=== PATIENT | male | born 2000 | race Caucasian/White ===

== ENCOUNTER 2023-02-15 19:03 | Emergency (ER) | payer OTHER ==
--- OUTSIDE RECORDS SUMMARY | 2023-02-15 19:06 | XMS REPORT | Continuity of Care Document ---
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, dissecans, 00:00: Ho spita right knee right knee 00 l Tear of Tear of Disease Active Methodi lateral lateral 03-04 st meniscus meniscus 00:00: Hospit a of right of right 00 l knee knee Encounter Encounter Diagnosis Active 2020-04-03 Memoria for for 04:10:19 l immunizati immunizati He rmann on on Active Diagnosis 04/03/2020 eCW: [facility] Morbid Morbid Problem Active 2020-09-26 Reinaldo abdulkadir obesity obesity 04:11:22 l Active [place] Problem 09/26/2020 eCW: [facility] Adult Adult Diagnosis Active 2020-04-03 Mem oria general general 04:10:19 l medical medical [place] examinatio examinatio n n Active Diagnosis 04/03/2020 eCW: [facility] KNEE PAIN, KNEE Condition Inactiv 2012-02-11 Memoria LEFT PAIN, LEFT e 07:52:42 l Inactive [place] Condition 02/11/2012 [facility] OSTEOCHOND Condition Inactiv 2012-02-11 Memoria RITIS OSTEOCHOND e 07:52:42 l DISSECANS RITIS [place] DISSECANS Inactive Condition 02/11/2012 [facility] 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 N.BaA. Active Info Not Reinaldo abdulkadir Available 03-27 l 00:00: Rikki 00 Vancomyc Propensi Active Method i in ty to 03-02 st adverse 00:00: Hospita reaction 00 l s to drug Family History Family Member Diagnosis Comments Start Date Stop Date Source Natural father [facility] Natural mother [facility] Social History Social Habit Start Date Stop Date Quantity Comments Source [facility] Alcohol intake 2019-03-08 2019-03-08 Ex-drinker [facility] 00:00:00 00:00:00 (finding) Hospital Tobacco use and 2019-03-02 2019-03-02 Former smokeless [facility] exposure 00:00:00 00:00:00 tobacco user Hospital History of Social 2019-03-02 2019-03-[address] function 00:00:00 00:00:00 Hospital Tobacco Comment 2019-03-02 2019-03-02 Vap [facility]00 [facility] Sex Assigned At [birth year] [facility] 00[facility] Smoking Status Start Date Stop Date Source Never smoked tobacco [facility] Medications Ordered Filled Start Stop Current Ordering Indication Dosage Frequency Signature Comments Components Source Medication Medication Date Date Medication? Clinician (SIG) Name Name lisinopril- 2019 Yes 1{tbl} QD Take 1 Me thodi hydrochloro 9-[address] thiazide 12:39: mouth Hospita (PRINZIDE,Z 11 daily. l ESTORETIC) 10-12.5 mg per tablet hydrochloro 2019- Yes Nika 1 tab(s) M emoria thiazide-li 4-23 Garaghty l sinopril 00:00: [place] 00 hydrochloro 2019- Yes Ankit 1 tab(s) Me moria thiazide-li 4-23 Vanderzyl l sinopril 00:00: Rikki 00 lisinopril/ 2018- Yes Margarita 1 tab Me moria HCTZ 1-27 Teodoro l 05:13: Immunizations Ordered Immunization Filled Immunization Date Status Commen ts Source Name Name Influenza-Flucelvax 2020-03-27 Completed Memor ial 00:00:00 [place] Influenza-Flucelvax- 2018-04-13 Completed Reinaldo rial multi-vial 00:00:00 [place] Vital Signs Vital Name Observation Time Observation Value Comments Source Height 2020-03-27 21:00:00 [facility] Weight 2020-03-27 21:00:00 [facility] Temperature Oral (F) 2020-03-27 21:00:00 98.2 F [facility] Diastolic (mm Hg) 2020-03-27 21:00:00 Mem orial [place] Systolic (mm Hg) 2020-03-27 21:00:00 Reinaldo rial [place] Weight 2018-04-13 16:00:00 [facility] [place] Temperature Oral (F) 2018-04-13 16:00:00 97.1 F [facility] [place] Diastolic (mm Hg) 2018-04-13 16:00:00 Mem orial [place] Systolic (mm Hg) 2018-04-13 16:00:00 Reinaldo rial [place] Weight 2012-02-06 15:26:17 [facility] Height 2012-02-06 15:26:17 [facility] Systolic (mm Hg) 2012-02-06 15:26:17 Reinaldo rial [place] Diastolic (mm Hg) 2012-02-06 15:26:17 Mem orial [place] Heart Rate 2012-02-06 15:26:17 [facility] Procedures Procedure Date / Time Performed Performing Clinician Sourc e genitourinary review of 2012-02-05 22:05:03 Reinaldo Brandt systems, E&M Plan of Care Planned Activity Planned Date Details Comments Source Future Scheduled 2023-02-01 [facility]FLUENZA VACCINE [facility] Test 21:14:26 [code = INFLUENZA VACCINE] Future Scheduled 2023-02-01 COVID-[address] [facility] Test 21:14:26 (#1) [code = COVID-19 VACCINE (#1)] Encounters Start End Encounter Admission Attending Care Care Encounter Source Date/Time Date/Time Type Type Clinicians Facility Department ID 2021-08-20 2021-08-20 Outpatient COH COH PIJFILS SDQ COH 00:00:00 00:00:00 [id number] 2021-08-09 2021-08-09 Outpatient FBCOVID FBCOVID [id number] FBCOVID 00:00:00 00:00:00 [id number] 2020-09-25 2020-09-25 [place] [id number] [facility] 09:42:00 09:42:00 [facility] 2020-03-29 2020-03-29 [facility] [place] [id number] [facility] 14:36:00 14:36:00 [facility] 2020-03-27 2020-03-27 [facility] [place] [id number] [facility] 16:00:00 16:00:00 [facility] 2020-03-01 2020-03-01 [facility] [place] [id number] [facility] 13:39:00 13:39:00 [facility] 2019-12-20 2019-12-20 [facility] [place] [id number] [facility] 16:39:00 16:39:00 [facility] 2019-12-15 2019-12-15 [facility] [place] [id number] [facility] 15:27:00 15:27:00 [facility] 2019-03-10 2019-03-10 [facility] [place] [id number] [facility] 09:35:00 09:35:00 [facility] 2018-10-26 2018-10-26 [place] [place] [id number] [facility] 15:06:00 15:06:00 [facility] 2018-10-01 2018-10-01 [place] [id number] [facility] 11:32:00 11:32:00 [facility] 2018-05-25 2018-05-25 Outpatient [id number] Mem[facility] 15:59:00 15:59:00 poppy [place] 2018-05-25 2018-05-25 [place] [place] [id number] [facility] 08:44:00 08:44:00 [facility] 2018-04-13 2018-04-13 [place] [place] [id number] [facility] 11:00:00 11:00:00 [facility] 2018-04-13 2018-04-13 [place] [place] [id number] [facility] 10:40:00 10:40:00 [facility] 2012-02-11 2012-02-11 Office nullFlavo [place] [id number] [facility] 00:00:00 00:00:00 Visit r Office [id number] poppy Brandt 2012-02-06 2012-02-06 Office nullFlavo [place] [id number] [facility] 00:00:00 00:00:00 Visit r Office [id number] poppy Brandt Results This patient has no known results.
[2023-02-15] MEDS ORDERED: HYDROCODONE/APAP 7.5/325 MG TAB ONE (19:34)
[2023-02-15] MEDS ORDERED: AZITHROMYCIN 250 MG TAB ONE (20:53)
[2023-02-15] MEDS ORDERED: HYDROMORPHONE HCL 1 MG/ML INJ ONE (20:53)
[2023-02-15] MEDS ORDERED: TDAP (DIPHTH,PERTUSS(ACELL),TET VAC) 0.5 ML VIAL IMVAC ONE (20:54)
--- NOTE | 2023-02-15 21:28 | RAD REPORT ---
EXAM DESCRIPTION: RAD - Tib Fib Right - 02/15/2023 7:58 pm CLINICAL HISTORY: fb;Pain COMPARISON: No comparisons TECHNIQUE: Right tibia and fibula, 2 views. FINDINGS: No fracture is identified. There is no dislocation or periosteal reaction noted. No acute or suspicious bony finding. No foreign body or other soft tissue abnormality. IMPRESSION: Negative right tibia & fibula examination.
--- NOTE | 2023-02-15 21:42 | ER ---
Nurse's Notes [facility] Name: Maxx Lucero Age: 22 yrs Sex: Male : 2000 Arrival Date: 02/15/2023 Time: 19:03 Bed 12 Private MD: Diagnosis: Laceration without foreign body, right foot Presentation: 02/15 19:16 Chief complaint: Spouse and/or significant other states: Stung by stingray on right nj1 foot. Coronavirus screen: Vaccine status: Patient reports receiving the 2nd dose of the covid vaccine. Ebola Screen: Patient denies travel to an Ebola-affected area in the 21 days before illness onset. Risk Assessment: Do you want to hurt yourself or someone else? Patient reports no desire to harm self or others. Onset of symptoms was February 15, 2023. 19:16 Method Of Arrival: Ambulatory [facility] 19:16 Acuity: LAVERN 4 [facility] 19:20 Initial Sepsis Screen: Does the patient meet any 2 criteria? No. Patient's initial 1 sepsis screen is negative. Does the patient have a suspected source of infection? No. Patient's initial sepsis screen is negative. Historical: - Allergies: 19:17 vancomycin; nj1 - PMHx: 19:17 Hypertensive disorder; nj1 - Immunization history:: Client reports receiving the 2nd dose of the Covid vaccine. - Social history:: Smoking status: Reported history of juuling and/or vaping. Screenin:20 [facility] ED Fall Risk Assessment (Adult) History of falling in the last 3 months, pf1 including since admission No falls in past 3 months (0 pts) Confusion or Disorientation No (0 pts) Intoxicated or Sedated No (0 pts) Impaired Gait No (0 pts) Mobility Assist Device Used No (0 pt) Altered Elimination No (0 pt) Score/Fall Risk Level 0 - 2 = Low Risk Oriented to surroundings, Maintained a safe environment, Educated pt \T\ family on fall prevention, incl call for assistance when getting out of bed, Assessed \T\ reinforced patient's understanding of fall precautions, Provided non-skid footwear, Hourly rounding (assess needs \T\ fall precautionary measures) done, Used ambulatory aids as needed (educated on \T\ assisted with), Used gait belt as appropriate. 19:20 Abuse screen: Denies threats or abuse. Nutritional screening: No deficits noted. pf1 Tuberculosis screening: No symptoms or risk factors identified. Assessment: 19:19 General: Appears in no apparent distress. uncomfortable, well groomed, well developed, pf1 Behavior is cooperative, appropriate for age, quiet. 19:19 Pain: Complains of pain in right foot and right Achilles Pain currently is 10 out of 10 pf1 on a pain scale. Neuro: No deficits noted. Level of Consciousness is awake, alert, obeys commands, Oriented to person, place, time, situation. Cardiovascular: No deficits noted. Capillary refill < 3 seconds Patient's skin is warm and dry. Respiratory: No deficits noted. Airway is patent Respiratory effort is even, unlabored, Respiratory pattern is regular, symmetrical. GI: No deficits noted. No signs and/or symptoms were reported involving the gastrointestinal system. : No deficits noted. No signs and/or symptoms were reported regarding the genitourinary system. EENT: No deficits noted. No signs and/or symptoms were reported regarding the EENT system. Derm: Wound noted right Achilles and right foot Wound is abrasion noted to medial and lateral right heel. 20:00 Reassessment: Patient appears in no apparent distress at this time. Patient and/or pf1 family updated on plan of care and expected duration. Pain level reassessed. Patient is alert, oriented x 3, equal unlabored respirations, skin warm/dry/pink. 21:00 Reassessment: Patient appears in no apparent distress at this time. Patient and/or pf1 family updated on plan of care and expected duration. Pain level reassessed. Patient is alert, oriented x 3, equal unlabored respirations, skin warm/dry/pink. Patient states symptoms have improved. 22:00 Reassessment: Patient appears in no apparent distress at this time. Patient and/or pf1 family updated on plan of care and expected duration. Pain level reassessed. Patient is alert, oriented x 3, equal unlabored respirations, skin warm/dry/pink. Patient states feeling better. Patient states symptoms have improved. Vital Signs: 19:27 Weight 122.47 kg; nj1 19:39 BP 132 / 84; Pulse 97; Resp 18; Temp 98.1; Pulse Ox 100% on R/A; Pain 10/10; nj1 21:00 BP 130 / 72; Pulse 92; Resp 18; Pulse Ox 100% on R/A; pf1 22:00 BP 135 / 76; Pulse 95; Resp 16; Pulse Ox 99% ; pf1 19:39 Pain Scale: Adult nj1 ED Course: 19:07 Patient arrived in ED. snw 19:11 Nelli Odell FNP-C is PHCP. snw 19:11 Darwin Barger MD is Attending Physician. snw 19:17 Triage completed. nj1 19:19 Arm band placed on. nj1 19:19 No provider procedures requiring assistance completed. pf1 19:20 Patient has correct armband on for positive identification. Bed in low position. Call pf1 light in reach. 19:59 Tib Fib Right XRAY In Process Unspecified. EDMS 22:29 Attending Physician role handed off by Darwin Barger MD cp 22:29 Becka Ireland MD is Attending Physician. cp 22:53 Patient did not have IV access during this emergency room visit. pf1 23:50 Provided Education on: medication administration. pf1 Administered Medications: 19:27 Drug: Hydrocodone-Acetaminophen PO (7.5 mg-325 mg) 1 tabs Route: PO; nj1 20:20 Follow up: Response: No adverse reaction; Marked relief of symptoms; Pain is unchanged, pf1 physician notified; RASS: Alert and Calm (0) 20:50 Drug: HYDROmorphone IM 1 mg Route: IM; Site: right deltoid; pf1 21:50 Follow up: Response: No adverse reaction; Marked relief of symptoms; Pain is unchanged, pf1 physician notified; RASS: Alert and Calm (0) 20:55 Drug: Boostrix Tdap IM 0.5 ml Route: IM; Site: left deltoid; pf1 21:50 Follow up: Response: No adverse reaction pf1 20:55 Drug: AZITHromycin PO 500 mg Route: PO; pf1 21:50 Follow up: Response: No adverse reaction pf1 22:04 Drug: Ketorolac IM 60 mg Route: IM; Site: left gluteus; pf1 22:50 Follow up: Response: No adverse reaction; Marked relief of symptoms; Pain is decreased pf1 Medication: 21:00 Vaccine Information Statement (VIS) provided today. Questions and/or concerns pf1 addressed. VIS edition date: February 02, 2021. Outcome: 21:41 Discharge ordered by . sd2 22:53 Discharged to home via wheelchair, with family. pf1 22:53 Condition: improved 22:53 Discharge instructions given to patient, family, Instructed on discharge instructions, follow up and referral plans. Demonstrated understanding of instructions, follow-up care, medications, Prescriptions given X 3. 22:53 Patient left the ED. pf1 Signatures: Dispatcher [employer] EDMS Nelli Odell, JHONY-C HEEL SEAT SANDER-Csnw Hardeep Arce PA PA cp Dunlop, Stephanie, MD MD sd2 Mattie Alcantara, RN RN pf1 Margot De La Vega, RN RN nj1
--- NOTE | 2023-02-15 21:42 | EDPHYS ---
Physician Documentation [facility] Name: Maxx Lucero Age: 22 yrs Sex: Male : 2000 Arrival Date: 02/15/2023 Time: 19:03 Bed 12 Private MD: ED Physician Becka Ireland HPI: 02/15 19:16 This 22 yrs old Male presents to ER via Unassigned with complaints of STUNG BY STINGRAY.snw 19:16 The patient presents with an injury, pain, that is acute. The complaints affect the snw right Achilles. Context: [place] resulted [place] direct blow, the patient can partially bear weight, Problem is a result from a previous injury: No. Onset: The symptoms/episode began/occurred suddenly, and became worse. Treatment prior to arrival includes: cloth dressing. Severity of symptoms: At their worst the symptoms were moderate, severe. It is unknown whether or not the patient has had similar symptoms in the past. It is unknown whether or not the patient has recently seen a physician. Historical: - Allergies: 19:17 vancomycin; nj1 - PMHx: 19:17 Hypertensive disorder; nj1 - Immunization history:: Client reports receiving the 2nd dose of the Covid vaccine. - Social history:: Smoking status: Reported history of juuling and/or vaping. ROS: 19:16 Constitutional: Negative for fever, chills, and weight loss, Eyes: Negative for injury, snw pain, redness, and discharge, ENT: Negative for injury, pain, and discharge, Neck: Negative for injury, pain, and swelling, Cardiovascular: Negative for chest pain, palpitations, and edema, Respiratory: Negative for shortness of breath, cough, wheezing, and pleuritic chest pain, Abdomen/GI: Negative for abdominal pain, nausea, vomiting, diarrhea, and constipation, Back: Negative for injury and pain, : Negative for injury, bleeding, discharge, and swelling, MS/Extremity: Negative for injury and deformity, Neuro: Negative for headache, weakness, numbness, tingling, and seizure, Psych: Negative for depression, anxiety, suicide ideation, homicidal ideation, and hallucinations. 19:16 Skin: Positive for laceration(s), puncture, of the right Achilles. Exam: 19:12 Constitutional: This is a well developed, well nourished patient who is awake, alert, snw and in no acute distress. Head/Face: Normocephalic, atraumatic. Eyes: Pupils equal round and reactive to light, extra-ocular motions intact. Lids and lashes normal. Conjunctiva and sclera are non-icteric and not injected. Cornea within normal limits. Periorbital areas with no swelling, redness, or edema. ENT: Nares patent. No nasal discharge, no septal abnormalities noted. Tympanic membranes are normal and external auditory canals are clear. Oropharynx with no redness, swelling, or masses, exudates, or evidence of obstruction, uvula midline. Mucous membranes moist. Neck: Trachea midline, no thyromegaly or masses palpated, and no cervical lymphadenopathy. Supple, full range of motion without nuchal rigidity, or vertebral point tenderness. No Meningismus. Chest/axilla: Normal chest wall appearance and motion. Nontender with no deformity. No lesions are appreciated. Cardiovascular: Regular rate and rhythm with a normal S1 and S2. No gallops, murmurs, or rubs. Normal PMI, no JVD. No pulse deficits. Respiratory: Lungs have equal breath sounds bilaterally, clear to auscultation and percussion. No rales, rhonchi or wheezes noted. No increased work of breathing, no retractions or nasal flaring. Abdomen/GI: Soft, non-tender, with normal bowel sounds. No distension or tympany. No guarding or rebound. No evidence of tenderness throughout. Back: No spinal tenderness. No costovertebral tenderness. Full range of motion. Neuro: Awake and alert, GCS 15, oriented to person, place, time, and situation. Cranial nerves II-XII grossly intact. Motor strength 5/5 in all extremities. Sensory grossly intact. Cerebellar exam normal. Normal gait. Psych: Awake, alert, with orientation to person, place and time. Behavior, mood, and affect are within normal limits. 19:12 Musculoskeletal/extremity: Extremities: grossly normal except: puncture. 19:12 Skin: Appearance: Color: pale, injury, puncture(s), that are deep, of the right Achilles. Vital Signs: 19:27 Weight 122.47 kg; nj1 19:39 BP 132 / 84; Pulse 97; Resp 18; Temp 98.1; Pulse Ox 100% on R/A; Pain 10/10; nj1 21:00 BP 130 / 72; Pulse 92; Resp 18; Pulse Ox 100% on R/A; pf1 22:00 BP 135 / 76; Pulse 95; Resp 16; Pulse Ox 99% ; pf1 19:39 Pain Scale: Adult nj1 MDM: 19:16 Patient medically screened. snw 19:23 Differential diagnosis: closed fracture, contusion, puncture. Data reviewed: vital snw signs, nurses notes. I considered the following discharge prescriptions or medication management in the emergency department Medications were administered in the Emergency Department. See MAR. Counseling: I had a detailed discussion with the patient and/or guardian regarding the historical points, exam findings, and any diagnostic results supporting the discharge/admit diagnosis, radiology results, the need for outpatient follow up, for definitive care, to return to the emergency department if symptoms worsen or persist or if there are any questions or concerns that arise at home. Special discussion: Based on the history and exam findings, there is no indication for further emergent testing or inpatient evaluation. I discussed with the patient/guardian the need to see the primary care provider for further evaluation of the symptoms. 02/15 19:10 Order name: Tib Fib Right XRAY; Complete Time: 21:39 snw 02/15 19:10 Order name: Misc. Order: hot water bath; Complete Time: 19:27 snw 02/15 20:37 Order name: Wound Care; Complete Time: 21:21 snw 02/15 20:37 Order name: Wound dressing; Complete Time: 21:21 snw Administered Medications: 19:27 Drug: Hydrocodone-Acetaminophen PO (7.5 mg-325 mg) 1 tabs Route: PO; nj1 20:20 Follow up: Response: No adverse reaction; Marked relief of symptoms; Pain is unchanged, pf1 physician notified; RASS: Alert and Calm (0) 20:50 Drug: HYDROmorphone IM 1 mg Route: IM; Site: right deltoid; pf1 21:50 Follow up: Response: No adverse reaction; Marked relief of symptoms; Pain is unchanged, pf1 physician notified; RASS: Alert and Calm (0) 20:55 Drug: Boostrix Tdap IM 0.5 ml Route: IM; Site: left deltoid; pf1 21:50 Follow up: Response: No adverse reaction pf1 20:55 Drug: AZITHromycin PO 500 mg Route: PO; pf1 21:50 Follow up: Response: No adverse reaction pf1 22:04 Drug: Ketorolac IM 60 mg Route: IM; Site: left gluteus; pf1 22:50 Follow up: Response: No adverse reaction; Marked relief of symptoms; Pain is decreased pf1 Disposition: 02/16 06:42 STAFF ATTESTATION: The patient's history, exam findings, diagnostics and a summary of sd2 any interventions or procedures was reviewed in detail with the JACK. I personally interviewed and examined the patient, and I have reviewed and agree with the HPI and exam. My personal exam shows a nontoxic appearing male in mild distress due to pain. Wound area is through and through the posterior Achilles with controlled bleeding. I confirm the diagnosis as documented by the JACK. I have reviewed and agree with the care plan articulated in the disposition section. Becka Ireland MD. Disposition Summary: 02/15/23 21:41 Discharge Ordered Location: Home sd2 Condition: Stable sd2 Diagnosis - Laceration without foreign body, right foot sd2 Followup: snw - With: Emergency Department - When: As needed - Reason: Worsening of condition Followup: snw - With: Private Physician - When: 2 - 3 days - Reason: Recheck today's complaints, Continuance of care, Re-evaluation by your physician Discharge Instructions: - Discharge Summary Sheet snw - [employer] Injury snw - Nonsutured Laceration Care snw - Puncture Wound snw - Immunization Schedule, 22-26 Years Old snw Forms: - Medication Reconciliation Form sd2 - Thank You Letter sd2 - Antibiotic Education sd2 - Prescription Opioid Use sd2 - Patient Portal Instructions sd2 - Leadership Thank You Letter sd2 Prescriptions: - acetaminophen-codeine 300-30 mg Oral tablet - take 1 tablet by ORAL route every 6 hours As needed; 12 tablet; Refills: 0, sd2 Product Selection Permitted - Mobic 7.5 mg Oral Tablet - take 1 tablet by ORAL route once daily take with food; 20 tablet; Refills: 0, sd2 Product Selection Permitted - Zithromax 500 mg Oral Tablet - take 1 tablet by ORAL route once daily for 5 days; 5 tablet; Refills: 0, sd2 Product Selection Permitted Signatures: Dispatcher [employer] Nelli Colin FNP-C LEGAL RECEPTIONIST-Csnw Becka Ireland MD MD sd2 Mattie Alcantara, RN RN pf1 Margot De La Vega RN RN nj1
[2023-02-15] MEDS ORDERED: KETOROLAC 30 MG/ML INJ ONE (22:09)
[2023-02-15 23:27] VITALS: BP 132/84; TEMP 98.1; O2SAT 100
== END 2023-02-15 22:53 | disposition home or self-care (01) ==
LOC: ER 19:03
DX: S91.311A Laceration without foreign body, right foot, initial encounter (principal); W45.8XXA Other foreign body or object entering through skin, initial encounter; Y93.89 Activity, other specified; Y92.832 Beach as the place of occurrence of the external cause
CPT/HCPCS: 73590; 96372; 99284; J1170